=== PATIENT | female | born 1990 | race Caucasian/White ===

== ENCOUNTER 2017-03-08 13:12 | Emergency (ER) | payer OTHER ==
[2017-03-08 13:21] VITALS: BMI 34.9
--- NOTE | 2017-03-08 13:44 | PDOC ---
History of Present Illness - General History Source: Patient Exam Limitations: No Limitations - History of Present Illness Initial Comments: 03/08/17 14:07 26 yo F with h/o G2 P 1 at 27 weeks here after was hit in stomach while trying to take down her stroller. has felt baby move since. no loss of fluid. no vaginal bleeding. no current abd pain. no other complaints. Occurred: reports: just prior to arrival Pain Location: reports: abdomen Method of Injury: Yes: direct blow Modifying Factors: improves with: None Loss of Consciousness: no loss of consciousness <Valery Sadler - Last Filed: 03/08/17 14:13> <Sissy Loving - Last Filed: 03/08/17 14:45> - General Chief Complaint: Injury Stated Complaint: 26 WKS , FOLLOW UP Time Seen by Provider: 03/08/17 13:39 Past History - Past Medical History Seizures: Yes - Psycho/Social/Smoking Cessation Hx Suicidal Ideation: No Smoking History: Never smoked <Valery Sadler - Last Filed: 03/08/17 14:13> <Sissy Loving - Last Filed: 03/08/17 14:45> - Past Medical History Allergies/Adverse Reactions: Allergies Allergy/AdvReac Type Severity Reaction Status Date / Time No Known Allergies Allergy Verified 03/08/17 13:16 Home Medications: Ambulatory Orders Lamotrigine [Lamictal] 100 mg PO DAILY 03/08/17 Review of Systems - Review of Systems Is the patient limited American proficient: No Constitutional: No: Chills, Diaphoresis HEENTM: No: Eye Pain Respiratory: No: Cough, Orthopnea Cardiac (ROS): No: See HPI, Chest Pain ABD/GI: Yes: Abdominal Distended. No: Constipated, Diarrhea Psychiatric: No: Anxiety, Depression Endocrine: No: Symptoms Reported <Valery Sadler - Last Filed: 03/08/17 14:13> *Physical Exam - Vital Signs Last Vital Signs Temp Pulse Resp BP Pulse Ox 98.2 F 104 H 19 130/80 98 03/08/17 13:16 03/08/17 13:16 03/08/17 13:16 03/08/17 13:16 03/08/17 13:16 - Physical Exam General Appearance: Yes: Nourished Neck: positive: Trachea midline. negative: Tender Respiratory/Chest: positive: Lungs Clear, Normal Breath Sounds. negative: Chest Tender, Respiratory Distress Cardiovascular: positive: Regular Rhythm, Regular Rate Female Pelvic Exam: negative: normal external exam, cervical os closed Gastrointestinal/Abdominal: positive: Normal Bowel Sounds. negative: Tender Rectal Exam: negative: heme negative stool Musculoskeletal: positive: Normal Inspection Extremity: positive: Normal Capillary Refill, Normal Inspection Integumentary: positive: Normal Color, Dry, Warm <Valery Sadler - Last Filed: 03/08/17 14:13> - Vital Signs Last Vital Signs Temp Pulse Resp BP Pulse Ox 98.2 F 104 H 19 130/80 98 03/08/17 13:16 03/08/17 13:16 03/08/17 13:16 03/08/17 13:16 03/08/17 13:16 <Sissy Loving - Last Filed: 03/08/17 14:45> Procedures - Bedside Ultrasound Bedside Ultrasound: wave solder offbearer Other: focused ED ultrasound transabd ob, FHR 131 bpm movement noted. <Valery Sadler - Last Filed: 03/08/17 14:13> Medical Decision Making - Medical Decision Making 03/08/17 13:41 26 yo F with h/o G2 P 1 at 27 weeks here after was hit in stomach while trying to take down her stroller. has felt baby move since. no loss of fluid. no vaginal bleeding. no current abd pain. no other complaints. on exam pt awake alert, CTAB no wheeze no crackle. heart RRR no m/r/b. abd gravid, soft nontender. no eccymosis. ext wwp atraumatic. plan: will perform bedside ultrasound evaluate FHR for well bbeing. will d /w OB subscription clerk,and transfer to L &D for monitoring per dept. protocol. 03/08/17 14:04 bedside trans-abdominal OB ultrasound performed, uterus scanned in two planes. heart rate 131 bpm, movement noted. will transfer to OB for monitoring. 03/08/17 14:06 <Valery Sadler - Last Filed: 03/08/17 14:13> - Medical Decision Making 03/08/17 14:[address] Black (covering for Dr. Werner) <Sissy Loving - Last Filed: 03/08/17 14:45> *DC/Admit/Observation/Transfer - Discharge Dispostion Admit: No <Valery Sadler - Last Filed: 03/08/17 14:13> - Attestations Scribe Attestion: 03/08/17 14:31 Documentation prepared by Sissy Lvoing, acting as medical device sales for Valery Sadler MD. <Sissy Loving - Last Filed: 03/08/17 14:45> Diagnosis at time of Disposition: , Abdominal trauma - Discharge Dispostion Disposition: HOME - Referrals Referrals: Randy Enrique MD [Primary Care Provider] - - Patient Instructions Printed Discharge Instructions: Managing Symptoms of Additional Instructions: go directly to Labor and Delivery for monitoring. return for any contractions. loss of fluid bleeding or any concerns.
[2017-03-08 14:52] VITALS: BP 112/56; PULSE 88; TEMP 98.1
[2017-03-08] MEDS ORDERED: DEXTROSE 5%-LACTATED RINGERS 500 ML IV ONE (15:00)
[2017-03-08] MEDS ORDERED: DEXTROSE 5%-LACTATED RINGERS 1,000 ML IV SCH (16:00)
== END 2017-03-08 16:48 | disposition home or self-care (01) ==
LOC: JER 13:12
DX: S39.81XA Other specified injuries of abdomen, initial encounter (principal); W22.8XXA Striking against or struck by other objects, initial encounter; Y93.89 Activity, other specified; Y92.89 Other specified places as the place of occurrence of the external cause; Z3A.27 27 weeks gestation of pregnancy
CPT/HCPCS: 76801-TC; 99281-25

== ENCOUNTER 2018-02-09 19:41 | Emergency (ER) | payer OTHER ==
[2018-02-09] MEDS ORDERED: DOXYCYCLINE HYCLATE 100 MG CAPSULE PO ONE ×2 (19:58→20:02)
[2018-02-09] MEDS ORDERED: IBUPROFEN 400 MG TABLET (FP) PO ONE ×2 (19:58→20:02)
[2018-02-09 20:01] VITALS: BP 135/87; PULSE 77; TEMP 98.5; BMI 34.9
--- NOTE | 2018-02-09 20:03 | PDOC ---
History of Present Illness - General History Source: Patient <Dar Schaffer - Last Filed: 02/09/18 19:57> - General History Source: Patient Exam Limitations: No Limitations - History of Present Illness Initial Comments: 02/09/18 20:07 The patient is a 27 year old female with a significant PMH of seizures who presents to the emergency department with left foot pain s/p curtain bracket lodged into her left heel. The patient reports walking in her house when she stepped on a curtain bracket, which became lodged into her left heel. The patient states she has no other complaints. The patient denies chest pain, shortness of breath, headache and dizziness. Denies fever, chills, nausea, vomit, diarrhea and constipation. Denies dysuria, frequency, urgency and hematuria. Allergies: NKA Past surgical history: x1. Social history: No reported cigarette, alcohol, or drug use. PCP: None reported. <Dann Montesinos - Last Filed: 02/09/18 20:16> - General Chief Complaint: Foreign Body (FB) Stated Complaint: FOOT INJURY Time Seen by Provider: 02/09/18 19:57 Past History - Past Medical History Seizures: Yes - Suicide/Smoking/Psychosocial Hx Smoking History: Never smoked <Dar Schaffer - Last Filed: 02/09/18 19:57> <Dann Montesinos - Last Filed: 02/09/18 20:16> - Past Medical History Allergies/Adverse Reactions: Allergies Allergy/AdvReac Type Severity Reaction Status Date / Time No Known Allergies Allergy Verified 02/09/18 20:01 Home Medications: Ambulatory Orders Lamotrigine [Lamictal] 100 mg PO DAILY 03/08/17 Doxycycline Hyclate [Vibramycin] 100 mg PO BID #14 capsule 02/09/18 Ibuprofen 800 mg PO TID #30 tablet 02/09/18 Review of Systems - Review of Systems Able to Perform ROS?: Yes Comments:: 02/09/18 20:07 CONSTITUTIONAL: Absent: fever, chills, diaphoresis, generalized weakness, malaise, loss of appetite HEENT: Absent: rhinorrhea, nasal congestion, throat pain, throat swelling, difficulty swallowing, mouth swelling, ear pain, eye pain, visual Changes CARDIOVASCULAR: Absent: chest pain, syncope, palpitations, irregular heart rate, lightheadedness , peripheral edema RESPIRATORY: Absent: cough, shortness of breath, dyspnea with exertion, orthopnea, wheezing, stridor, hemoptysis GASTROINTESTINAL: Absent: abdominal pain, abdominal distension, nausea, vomiting, diarrhea, constipation, melena, hematochezia GENITOURINARY: Absent: dysuria, frequency, urgency, hesitancy, hematuria, flank pain, genital pain MUSCULOSKELETAL: (+) Left heel pain. Absent: arthralgia, joint swelling SKIN: Absent: rash, itching, pallor HEMATOLOGIC/IMMUNOLOGIC: Absent: easy bleeding, easy bruising, lymphadenopathy, frequent infections ENDOCRINE: Absent: unexplained weight gain, unexplained weight loss, heat intolerance, cold intolerance NEUROLOGIC: Absent: headache, focal weakness or paresthesias, dizziness, unsteady gait, seizure, mental status changes, bladder or bowel incontinence PSYCHIATRIC: Absent: anxiety, depression, suicidal or homicidal ideation, hallucinations. <Dann Montesinos - Last Filed: 02/09/18 20:16> *Physical Exam - Vital Signs Last Vital Signs Temp Pulse Resp BP Pulse Ox 98.5 F 77 18 135/87 100 02/09/18 19:57 02/09/18 19:57 02/09/18 19:57 02/09/18 19:57 02/09/18 19:57 - Physical Exam Comments: 02/09/18 20:08 GENERAL: Well developed, well nourished. Awake and alert. No acute distress. HEENT: Normocephalic, atraumatic. PERRLA, EOMI. No conjunctival pallor. Sclera are non- icteric. Moist mucous membranes. Oropharynx is clear. NECK: Supple. Full ROM. No JVD. Carotid pulses 2+ and symmetric, without bruits. No thyromegaly. No lymphadenopathy. CARDIOVASCULAR: Regular rate and rhythm. No murmurs, rubs, or gallops. Distal pulses are 2+ and symmetric. PULMONARY: No evidence of respiratory distress. Lungs clear to auscultation bilaterally. No wheezing, rales or rhonchi. ABDOMINAL: Soft. Non-tender. Non-distended. No rebound or guarding. No organomegaly. Normoactive bowel sounds. MUSCULOSKELETAL: (+) Bed bracket to lateral aspect of left heel. Normal range of motion at all joints. No bony deformities or tenderness. No CVA tenderness. EXTREMITIES: No cyanosis. No clubbing. No edema. No calf tenderness. SKIN: Warm and dry. Normal capillary refill. No rashes. No jaundice. NEUROLOGICAL: Alert, awake, appropriate. Cranial nerves 2-12 intact. No deficits to light touch and temperature in face, upper extremities and lower extremities. No motor deficits in the in face, upper extremities and lower extremities. Normoreflexic in the upper and lower extremities. Normal speech. Toes are downgoing bilaterally. Gait is normal without ataxia. PSYCHIATRIC: Cooperative. Good eye contact. Appropriate mood and affect. <Dann Montesinos - Last Filed: 02/09/18 20:16> ED Treatment Course - Medications Given in the ED: ED Medications Discontinued Medications Generic Name Dose Route Start Last Admin Trade Name Freq PRN Reason Stop Dose Admin Doxycycline Hyclate 100 mg 02/09/18 19:58 02/09/18 20:04 Vibramycin - PO 02/09/18 19:59 100 mg ONCE ONE Administration Ibuprofen 800 mg 02/09/18 19:58 02/09/18 20:04 Motrin - PO 02/09/18 19:59 800 mg ONCE ONE Administration <Dann Montesinos - Last Filed: 02/09/18 20:16> Medical Decision Making - Medical Decision Making 02/09/18 20:04 Dr. Schaffer: The scribe's documentation has been prepared under my direction and personally reviewed by me in its entirery. I confirm that the note above accurately reflects all work, treatment, procedures, and medical decision making performed by me. <Dar Schaffer - Last Filed: 02/09/18 19:57> *DC/Admit/Observation/Transfer - Discharge Dispostion Admit: No <Dar Schaffer - Last Filed: 02/09/18 19:57> - Attestations Scribe Attestion: 02/09/18 20:08 Documentation prepared by Dann Montesinos, acting as medical instrument technician for Dar Schaffer DO. <Dann Montesinos - Last Filed: 02/09/18 20:16> Diagnosis at time of Disposition: Foreign body (FB) in soft tissue, Foot pain, left - Discharge Dispostion Disposition: HOME Condition at time of disposition: Stable - Prescriptions Prescriptions: Doxycycline Hyclate [Vibramycin] 100 mg PO BID #14 capsule Ibuprofen 800 mg PO TID #30 tablet - Referrals Referrals: Randy Enrique MD [Primary Care Provider] - - Patient Instructions Printed Discharge Instructions: DI for Removal of Foreign Body From Skin Additional Instructions: keep wound clean and dry. wash with soap and water. Take medication as directed. Return if any problems
== END 2018-02-09 20:27 | disposition home or self-care (01) ==
LOC: JER 19:41
DX: M79.5 Residual foreign body in soft tissue (principal); W22.8XXA Striking against or struck by other objects, initial encounter; Y93.89 Activity, other specified; Y92.038 Other place in apartment as the place of occurrence of the external cause; Y99.8 Other external cause status
CPT/HCPCS: 99282-25